=== PATIENT | female | born 1960 | race Caucasian/White ===

== ENCOUNTER 2021-11-28 08:39 | Emergency (ER) | payer OTHER ==
--- NOTE | 2021-11-28 08:47 | ED Physician Documentation ---
PD HPI FEMALE - Stated complaint Stated Complaint: FEMALE - History obtained from History obtained from: Patient - History of Present Illness Timing - onset: How many days ago (several) Timing - duration: Days (several) Timing - details: Gradual onset, Still present Associated symptoms: Other (Started noting tenderness and blisters in the inner labia and periurethral area several days ago. Tried OTC yeast medication without improvement. No prior similar. Today also with right eye crusting and discharge.) Contributing factors: Sexually active (Same partner for 3 years and recently actually just a month ago.) Similar symptoms before: Has not had sx before Recently seen: Not recently seen Review of Systems Constitutional: reports: Myalgias. denies: Fever, Chills Nose: denies: Rhinorrhea / runny nose, Congestion Throat: denies: Sore throat Respiratory: denies: Cough GI: reports: Nausea. denies: Abdominal Pain, Vomiting, Constipation, Diarrhea : reports: Dysuria. denies: Discharge Skin: reports: Rash (vulvovaginal) PD PAST MEDICAL HISTORY - Present Medications Home Medications: Ambulatory Orders Medication Instructions Recorded Confirmed Doxycycline Hyclate 100 mg PO BID 7 Days #14 cap 11/28/21 Lidocaine Jelly 2% [Xylocaine 1 applic TOP QID PRN #30 ml 11/28/21 Jelly 2%] Sulfacetamide Sodium 5 ml RIGHTEYE QID 5 Days #5 ml 11/28/21 Valacyclovir HCl [Valtrex] 1,000 mg PO TID 5 Days #15 tablet 11/28/21 - Allergies Allergies/Adverse Reactions: Allergies Allergy/AdvReac Type Severity Reaction Status Date / Time No Known Drug Allergies Allergy Verified 11/28/21 08:50 PD ED PE NORMAL - Vitals Vital signs reviewed: Yes - General General: Alert and oriented X 3, Well developed/nourished - HEENT HEENT: PERRL, EOMI, Other (not light sensitive. Redness conjunctival. 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 No clustered vesicles. 2-3 to pubis area. Intravaginal with discrete similar sores. No endocervical discharge. No yeast appearance. ) - Rectal Rectal: Deferred - Derm Derm: Normal color, Warm and dry - Neuro Neuro: Alert and oriented X 3, No motor deficit, Normal speech Results - Vitals Vitals: Vital Signs - 24 hr 11/28/21 11/28/21 08:46 10:08 Temperature 37.4 C 37.3 C Heart Rate 100 86 Respiratory 14 12 Rate Blood Pressure 118/100 H 108/79 O2 Saturation 97 95 Oxygen O2 Source Room air - Labs Labs: Laboratory Tests 11/28/21 09:25 C. glabrata (PCR) NEGATIVE C. krusei (PCR) NEGATIVE Xi species DNA NEGATIVE T. vaginalis (PCR) NEGATIVE Bact Vaginosis (PCR) NEGATIVE PD MEDICAL DECISION MAKING - ED course Complexity details: considered differential (consider superficial staph abscesses as first was at pubis area after shaving. But lesions appear discrete sores (not clusters) so could be herpetic (painful as such). Appearance could be similar to ones I have seen in articles on orthoparvovirus. Any of these could transfer to eye, including chlam ), d/w patient Departure - Departure Disposition: 01 Home, Self Care Clinical Impression: Vulvovaginitis Condition: Stable Record reviewed to determine appropriate education?: Yes Prescriptions: Doxycycline Hyclate 100 mg PO BID 7 Days #14 cap Sulfacetamide Sodium 5 ml RIGHTEYE QID 5 Days #5 ml Valacyclovir HCl [Valtrex] 1,000 mg PO TID 5 Days #15 tablet Lidocaine Jelly 2% [Xylocaine Jelly 2%] 1 applic TOP QID PRN #30 ml PRN Reason: Pain Comments: Hopefully this is just a bacterial folliculitis and local infections. However it does have blistering appearance and so there is concern for viral causes such as herpetic and also monkey pox (because it is in the news and has this appearance though fairly unlikely). Other considerations would be chlamydial infection given also some transference likely to the eye. Even a bacterial folliculitis could transfer to the eye by direct inadvertent contact. I would treat this with antibiotic that would cover bacterial folliculitis as well as potential chlamydia for now. I would also start Marla acyclovir antiviral for potential of herpetic outbreak as that has an appearance of that. You can treat the pain with topical lidocaine and also oral ibuprofen or Tylenol or both. I would also use a antibiotic eyedrops 4 times daily for the next several days to treat the eye directly as well. The results from the vaginal PCR test should result 2 of them later today and the other 2 and couple of days. We will call with positive results on your test. You could also review the test results on the patient portal. I transmitted prescriptions to [facility] pharmacy in [place]. Discharge Date/Time: 11/28/21 10:13
[2021-11-28] MEDS ORDERED: valACYclovir 500 MG TABLET PO STA (09:34)
[2021-11-28] MEDS ORDERED: LIDOCAINE JELLY 2% 6 ML JEL.PF.APP TOP STA (09:34)
[2021-11-28] MEDS ORDERED: DOXYCYCLINE 100 MG TABLET PO STA (09:34)
[2021-11-28 10:09] VITALS: BP 108/79
[2021-11-28 13:28] LABS: BACTERIAL VAGINOSIS DNA NEGATIVE (NEGATIVE); CANDIDA GLABRATA DNA NEGATIVE (NEGATIVE); CANDIDA GROUP DNA NEGATIVE (NEGATIVE); CANDIDA KRUSEI DNA NEGATIVE (NEGATIVE); TRICHOMONAS VAGINALIS DNA NEGATIVE (NEGATIVE)
[2021-11-28 20:53] LABS: CHLAMYDIA TRACHOMATIS DNA NEGATIVE (NEGATIVE); NEISSERIA GONORRHOEAE DNA NEGATIVE (NEGATIVE)
== END 2021-11-28 10:13 | disposition home or self-care (01) ==
LOC: ED 08:39
DX: N76.0 Acute vaginitis (principal)
CPT/HCPCS: 81514; 81599; 87491; 87529; 87591; 99283; 99284; A9270; 87661

== ENCOUNTER 2021-12-01 08:00 | Outpatient (CLI) | payer OTHER | END 2021-12-01 23:59 | disposition home or self-care (01) | LOC: LAB.WC 08:00 | PROVIDERS: ATTEND Obstetrics & Gynecology | DX: N90.89 Other specified noninflammatory disorders of vulva and perineum (principal) | CPT/HCPCS: 87070; 87077; 87181; 87205 ==

== ENCOUNTER 2022-02-14 13:53 | Outpatient (CLI) | payer OTHER ==
--- NOTE | 2022-02-16 10:34 | Mammography Report ---
BILATERAL DIGITAL SCREENING MAMMOGRAM 3D/2D: 02/14/2022 CLINICAL: Routine screening. No prior exams were available for comparison. Both breasts are almost entirely fatty (category a/<25% glandular tissue). No significant masses, calcifications, or other findings are seen in either breast. IMPRESSION: NEGATIVE There is no mammographic evidence of malignancy. A 1 year screening mammogram is recommended. Based on the Tyrer Cuzick model (a risk assessment model) the patients lifetime risk is 6.6% and her 10 year risk is 2.8%. According to the ACR, ACS, and NCCN guidelines, an annual breast MRI exam darrick g with mammogram is recommended if the patients lifetime risk is 20% or greater. This exam was interpreted at Station ID: [id number]. NOTE: For mammograms, a report in lay terms will be sent to the patient. Approximately 15% of breast malignancies will not be visualized mammographically. In the management of a palpable breast mass, a negative mammogram must not discourage biopsy of a clinically suspicious lesion. Electronically Signed By: Jacob Alcantar M.D. acr/penrad:02/15/2022 15:32:32 ACR BI-RADS Category 1: Negative 3341F PARENCHYMAL PATTERN: (F) - The breast(s) demonstrate(s) diffuse fatty replacement. BI-RADS CATEGORY: (1) - 1 RECOMMENDATION: (ANNUAL) - Recommend routine annual screening mammography. [id number] 1 year screening LATERALITY: (B)
== END 2022-02-14 13:54 | disposition home or self-care (01) ==
LOC: DI 13:53
PROVIDERS: ATTEND Obstetrics & Gynecology
DX: Z12.31 Encounter for screening mammogram for malignant neoplasm of breast (principal)

== ENCOUNTER 2022-04-12 06:23 | Day surgery (SDC) | payer OTHER ==
[2022-04-12] MEDS ORDERED: LACTATED RINGERS 1,000 ML IV ONE (06:47)
[2022-04-12] MEDS ORDERED: MIDAZOLAM 2 MG/2 ML VIAL ONE (06:55)
[2022-04-12] MEDS ORDERED: fentaNYL 100 MCG/2 ML VIAL ONE (06:55)
[2022-04-12] MEDS ORDERED: PROPOFOL 200 MG/20 ML VIAL IVP ONE (06:55)
[2022-04-12] MEDS ORDERED: LIDOCAINE-PF 2% 10 ML AMP SUBQ ONE (06:56)
--- NOTE | 2022-04-12 06:58 | ANESTHESIA ---
Pre-Anesthesia VS, & Labs - Diagnosis opal 3 - Procedure Leep under anesthesia Vital Signs: Temp Pulse Resp BP Pulse Ox O2 Flow Rate 36.3 C L 76 16 119/84 H 99 04/12/22 06:47 04/12/22 06:47 04/12/22 06:47 04/12/22 06:47 04/12/22 06:47 Height: 5 ft 5 in Weight (kg): 80.9 kg Body Mass Index: 29.7 BMI Classification: Overweight - NPO >8 hours - Is Patient ?: No - Lab Results Lab results reviewed: Yes Home Medications and Allergies Home Medications: Ambulatory Orders Cholecalciferol [Vitamin D3] 50 mcg PO DAILY 03/04/22 Collagen/Biotin/Ascorbic Acid [Collagen 1500 Plus C Capsule] 3 each PO DAILY 03/04/22 Hyaluronate Sodium [Hyaluronic Acid] 750 mg PO DAILY 03/04/22 Lisinopril [Zestril] 10 mg PO DAILY 03/04/22 Multivitamin 1 tab PO DAILY 03/04/22 Nitrofurantoin Macrocrystal [Macrodantin] 50 mg PO PRN PRN 03/04/22 Valacyclovir HCl [Valtrex] 1,000 mg PO DAILY 03/04/22 Vitamin B Complex 1 each PO DAILY 03/04/22 amLODIPine [Norvasc] 5 mg PO DAILY 03/04/22 Cholecalciferol [Vitamin D3] 50 mcg PO DAILY 03/04/22 Collagen/Biotin/Ascorbic Acid [Collagen 1500 Plus C Capsule] 3 each PO DAILY 03/04/22 Hyaluronate Sodium [Hyaluronic Acid] 750 mg PO DAILY 03/04/22 Lisinopril [Zestril] 10 mg PO DAILY 03/04/22 Multivitamin 1 tab PO DAILY 03/04/22 Nitrofurantoin Macrocrystal [Macrodantin] 50 mg PO PRN PRN 03/04/22 Valacyclovir HCl [Valtrex] 1,000 mg PO DAILY 03/04/22 Vitamin B Complex 1 each PO DAILY 03/04/22 amLODIPine [Norvasc] 5 mg PO DAILY 03/04/22 Allergies/Adverse Reactions: Allergies Allergy/AdvReac Type Severity Reaction Status Date / Time codeine AdvReac Nausea, Verified 04/12/22 06:46 groggy Anes History & Medical History - Anesthetic History Anesthesia Complications: reports: No previous complications Family history of Anesthesia Complications: Denies Family history of Malignant Hyperthermia: Denies - Medical History Cardiovascular: reports: Hypertension, Other Pulmonary: reports: None Gastrointestinal: reports: None Urinary: reports: Chronic bladder infection Musculoskeletal: reports: Osteoarthritis Endocrine/Autoimmune: reports: None Skin: reports: None - Surgical History General: reports: Colonoscopy Eyes Ears Nose Throat (EENT): reports: Rhinoplasty Gynecologic: reports: section Exam General: Alert, Oriented x3, Cooperative Dental: WNL Mouth Openin Fingerbreadth Neck Mobility: Normal Mallampati classification: II Thyromental Distance: 4-6 cm Respiratory: Lungs clear, Normal breath sounds, No respiratory distress Cardiovascular: Regular rate Neurological: Normal speech Mental/Cognitive Status: Alert/Oriented X3, Normal for patient Cognitive Status: Within normal limits Plan Anesthesia Type: General Consent for Procedure(s) Verified and Reviewed: Yes Code Status: Attempt Resuscitation ASA classification: 2-Mild systemic disease Is this case an emergency?: No
[2022-04-12] MEDS ORDERED: BUPIVACAINE 0.5% PF 30 ML VIAL ONE (07:07)
[2022-04-12] MEDS ORDERED: POTASSIUM IODIDE/IODINE 14 ML SOLUTION ONE (07:07)
[2022-04-12] MEDS ORDERED: DEXAMETHASONE 4 MG/ML VIAL ONE (07:33)
[2022-04-12] MEDS ORDERED: ONDANSETRON 4 MG/2 ML VIAL ONE (07:33)
[2022-04-12] MEDS ORDERED: HYDROmorphone 0.5 MG/0.5 ML SYRINGE IVP PRN (07:56)
[2022-04-12] MEDS ORDERED: NALOXONE 0.4 MG/ML VIAL IVP PRN (07:56)
[2022-04-12] MEDS ORDERED: fentaNYL 100 MCG/2 ML VIAL IVP PRN (07:56)
[2022-04-12] MEDS ORDERED: ePHEDrine 50 MG/ML VIAL IVP PRN (07:56)
[2022-04-12] MEDS ORDERED: METOCLOPRAMIDE 10 MG/2 ML VIAL IVP PRN (07:56)
[2022-04-12] MEDS ORDERED: MORPHINE 2 MG/ML CARPUJECT IVP PRN (07:56)
[2022-04-12] MEDS ORDERED: ONDANSETRON 4 MG/2 ML VIAL IVP PRN (07:56)
[2022-04-12] MEDS ORDERED: ATROPINE ABBOJECT 1 MG/10 ML SYRINGE IVP PRN (07:56)
[2022-04-12] MEDS ORDERED: POTASSIUM IODIDE/IODINE 14 ML SOLUTION TOP ONE (07:59)
[2022-04-12] MEDS ORDERED: LACTATED RINGERS 1,000 ML IV SCH (08:00)
[2022-04-12] MEDS ORDERED: FERRIC SUBSULFATE 8 ML SOLUTION (FOR OR) TOP ONE (08:10)
[2022-04-12] MEDS ORDERED: KETOROLAC 30 MG/ML VIAL ONE (08:13)
[2022-04-12] MEDS ORDERED: oxyCODONE 5 MG TABLET PO PRN (08:15)
[2022-04-12] MEDS ORDERED: LACTATED RINGERS 600 ML IV ONE (08:19)
--- NOTE | 2022-04-12 08:23 | OPERATIVE REPORT ---
Operative Report - General Procedure Date: 04/12/22 Planned Procedure: LEEP conization with endocervical curettage Pre-Op Diagnosis: ANDREA-3 Procedure Performed: LEEP conization with endocervical curettage Post Op Diagnosis: ANDREA-3 - Procedure Note Primary Surgeon: Adonay Cardenas MD Anesthesia Provider: Ti Mendez CRNA Anesthesia Technique: General LMA Pathology: 1. LEEP conization 2. Cervical 1:00 biopsy 3. Endocervical curettage IV Fluids (mL): 400 Estimated Blood Loss (mL): 20 - Other Other Information/Narrative: Patient was taken to the operating room where general anesthesia was easily obtained. The patient was prepped and draped in the usual sterile fashion. She was placed in dorsolithotomy position and a timeout was performed. Coated sterile speculum was used to achieve visualization of the cervix. Visualization of the cervix showed some friable tissue around the cervical os as well as biopsy scars. The electrocautery machine was turned onto a 40/40 blen and using a large loop, the anterior cervical conization was performed removing the transformation zone, squamocolumnar junction and part of the internal os. Due to the ANDREA-3 at 1:00, an additional approximately 1 cm biopsy was performed at that area. An endocervical curettage was then performed. A combination of ball electrode coagulation and Monsel's was used to achieve hemostasis. Counts were correct. The patient tolerated the procedure well and was taken to the PACU in good condition.
[2022-04-12] MEDS ORDERED: oxyCODONE 5 MG TABLET ONE (08:55)
[2022-04-12 09:00] VITALS: BP 123/88
--- NOTE | 2022-04-12 12:49 | ANESTHESIA POST OP EVALUATION ---
Anesthesia Post Eval - Post Anesthesia Eval Vitals: Last Vital Signs Temp 36.1 C L 04/12/22 08:58 Pulse 73 04/12/22 08:58 Resp 16 04/12/22 08:58 BP 123/88 H 04/12/22 08:58 Pulse Ox 99 04/12/22 08:58 O2 Flow Rate CV Function Including HR & BP: Stable Pain Control: Satisfactory Nausea & Vomiting: Negative Mental Status: Baseline Respiratory Status: Airway Patent Hydration Status: Satisfactory Anesthesia Complications: None
== END 2022-04-12 06:24 | disposition home or self-care (01) ==
LOC: SDS 06:23
PROVIDERS: ATTEND Obstetrics & Gynecology
PROC: 0UBC7ZZ Excision of Cervix, Via Natural or Artificial Opening (ICD-10-PCS; principal; 2022-04-12 07:30)
DX: D06.9 Carcinoma in situ of cervix, unspecified (principal); I10 Essential (primary) hypertension; Z88.5 Allergy status to narcotic agent
CPT/HCPCS: 57522; A9270; J7120

== ENCOUNTER 2022-08-17 09:28 | Outpatient (CLI) | payer OTHER ==
[2022-08-17 10:09] LABS: CHOL/HDL RATIO 4.8 (<4.4); CHOLESTEROL 300 mg/dL; HDL CHOLESTEROL 63 mg/dL; LDL CHOLESTEROL,CALCULATED 215 mg/dL; LDL/HDL RATIO 3.4 (<4.4); TRIGLYCERIDES 110 mg/dL; VLDL CHOLESTEROL 22 mg/dL
[2022-08-17 14:04] LABS: ESTIMATED AVERAGE GLUCOSE 100 mg/dL (70-100); HEMOGLOBIN A1c% 5.1 % (4.27-6.07)
== END 2022-08-17 09:29 | disposition home or self-care (01) ==
LOC: LAB 09:28
PROVIDERS: ATTEND Obstetrics & Gynecology
DX: Z01.419 Encounter for gynecological examination (general) (routine) without abnormal findings (principal); Z13.220 Encounter for screening for lipoid disorders; Z13.1 Encounter for screening for diabetes mellitus
CPT/HCPCS: 36415; 80061; 83036; 83721

== ENCOUNTER 2023-02-20 11:48 | Outpatient (CLI) | payer OTHER ==
[2023-02-20 12:38] LABS: BUN - BLOOD UREA NITROGEN 17 mg/dL (6-20); CALCIUM 9.9 mg/dL (8.5-10.3); CARBON DIOXIDE - CO2 30 mmol/L (21-32); CHLORIDE 106 mmol/L (101-111); CHOLESTEROL 196 mg/dL; CREATININE 0.9 mg/dL (0.6-1.3); GFR - MDRD 63 (>89); GLUCOSE 104 mg/dL (74-104); HDL CHOLESTEROL 66 mg/dL; LDL CHOLESTEROL,CALCULATED 103 mg/dL; LDL/HDL RATIO 1.6 (<4.4); POTASSIUM 4.1 mmol/L (3.5-4.5); SODIUM 140 mmol/L (135-145); TRIGLYCERIDES 137 mg/dL (48-352); VLDL CHOLESTEROL 27 mg/dL
== END 2023-02-20 11:49 | disposition home or self-care (01) ==
LOC: LAB 11:48
PROVIDERS: ATTEND Nurse Practitioner Acute Care
DX: N18.2 Chronic kidney disease, stage 2 (mild) (principal); E78.5 Hyperlipidemia, unspecified
CPT/HCPCS: 36415; 80048; 80061; 83721

== ENCOUNTER 2023-03-15 09:17 | Outpatient (CLI) | payer OTHER | END 2023-03-15 09:18 | disposition home or self-care (01) | LOC: DI 09:17 | PROVIDERS: ATTEND Nurse Practitioner Acute Care | DX: I34.0 Nonrheumatic mitral (valve) insufficiency (principal); R01.1 Cardiac murmur, unspecified; Q24.5 Malformation of coronary vessels | CPT/HCPCS: 93306 ==

== ENCOUNTER 2023-04-11 08:22 | Day surgery (SDC) | payer OTHER ==
--- NOTE | 2023-04-11 08:33 | ANESTHESIA ---
Pre-Anesthesia VS, & Labs - Diagnosis screening - Procedure colonoscopy Height: 5 ft 5 in - NPO Other (prep as directed) - Is Patient ?: No Home Medications and Allergies Home Medications: Ambulatory Orders Rosuvastatin Calcium [Crestor] 5 mg ORAL DAILY 04/10/23 Cholecalciferol [Vitamin D3] 50 mcg PO DAILY 03/04/22 Collagen/Biotin/Ascorbic Acid [Collagen 1500 Plus C Capsule] 3 each PO DAILY 03/04/22 Hyaluronate Sodium [Hyaluronic Acid] 750 mg PO DAILY 03/04/22 Lisinopril [Zestril] 10 mg PO DAILY 03/04/22 Multivitamin 1 tab PO DAILY 03/04/22 Nitrofurantoin Macrocrystal [Macrodantin] 50 mg PO PRN PRN 03/04/22 Valacyclovir HCl [Valtrex] 1,000 mg PO DAILY 03/04/22 Vitamin B Complex 1 each PO DAILY 03/04/22 amLODIPine [Norvasc] 5 mg PO DAILY 03/04/22 Rosuvastatin Calcium [Crestor] 5 mg ORAL DAILY 04/10/23 Allergies/Adverse Reactions: Allergies Allergy/AdvReac Type Severity Reaction Status Date / Time codeine AdvReac Nausea, Verified 04/12/22 06:46 groggy Anes History & Medical History - Anesthetic History Anesthesia Complications: reports: No previous complications - Medical History Cardiovascular: reports: Hypertension, Other Pulmonary: reports: None Gastrointestinal: reports: None Urinary: reports: Chronic bladder infection Musculoskeletal: reports: Osteoarthritis Endocrine/Autoimmune: reports: None Skin: reports: None Smoking Status: Never smoker Psychosocial: reports: Alcohol (occasionally) - Surgical History General: reports: Colonoscopy Eyes Ears Nose Throat (EENT): reports: Rhinoplasty Gynecologic: reports: section Exam General: Alert Plan Anesthesia Type: Total IV Consent for Procedure(s) Verified and Reviewed: Yes Code Status: Attempt Resuscitation ASA classification: 2-Mild systemic disease Is this case an emergency?: No
[2023-04-11] MEDS ORDERED: LACTATED RINGERS 1,000 ML IV ONE ×2 (08:46→09:40)
[2023-04-11] MEDS ORDERED: PROPOFOL 500 MG/50 ML 500 MG/50 ML VIAL ONE (09:03)
[2023-04-11 09:55] VITALS: O2SAT 100
[2023-04-11 10:14] VITALS: BP 99/77
--- NOTE | 2023-04-11 12:23 | ANESTHESIA POST OP EVALUATION ---
Anesthesia Post Eval - Post Anesthesia Eval Vitals: Last Vital Signs Temp 36.2 C L 04/11/23 10:07 Pulse 66 04/11/23 10:07 Resp 18 04/11/23 10:07 BP 99/77 04/11/23 10:07 Pulse Ox 100 04/11/23 10:07 O2 Flow Rate CV Function Including HR & BP: Stable Pain Control: Satisfactory Nausea & Vomiting: Negative Mental Status: Baseline Respiratory Status: Airway Patent Hydration Status: Satisfactory Anesthesia Complications: None
== END 2023-04-11 08:23 | disposition home or self-care (01) ==
LOC: SDS 08:22
PROVIDERS: ATTEND Surgery
DX: Z12.11 Encounter for screening for malignant neoplasm of colon (principal); K57.30 Diverticulosis of large intestine without perforation or abscess without bleeding
CPT/HCPCS: 45378; J7120

== ENCOUNTER 2023-08-10 08:12 | Outpatient (CLI) | payer OTHER ==
[2023-08-10 08:30] LABS: BASOPHILS % (AUTO) 0.7 %; EOSINOPHILS # (AUTO) 0.1 10^3/uL (0.0-0.7); EOSINOPHILS % (AUTO) 2.1 %; HCT - HEMATOCRIT 42.4 % (37.0-47.0); LYMPHOCYTES # (AUTO) 1.6 10^3/uL (1.5-3.5); LYMPHOCYTES % (AUTO) 36.4 %; MEAN CORPUSCULAR HEMOGLOBIN 32.2 pg (27.0-31.0); MEAN CORPUSCULAR VOLUME 97.5 fL (81.0-99.0); MEAN PLATELET VOLUME 8.6 fL (7.9-10.8); MONOCYTES # (AUTO) 0.3 10^3/uL (0.0-1.0); MONOCYTES % (AUTO) 7.6 %; NEUTROPHILS # (AUTO) 2.3 10^3/uL (1.5-6.6); PLT - PLATELET COUNT 268 10^3/uL (130-450); RED BLOOD COUNT 4.35 10^6/uL (4.20-5.40); WHITE BLOOD COUNT 4.3 x10^3/uL (4.8-10.8)
[2023-08-10 08:44] LABS: ALBUMIN 4.5 g/dL (3.2-5.5); ALBUMIN/GLOBULIN RATIO 1.7 (1.0-2.2); ALKALINE PHOSPHATASE 38 IU/L (42-121); ALT ALANINE AMINOTRANSFERASE 19 IU/L (10-60); AST ASPARTATE AMINOTRANSFERASE 19 IU/L (10-42); BILIRUBIN,TOTAL 0.9 mg/dL (0.2-1.0); BUN - BLOOD UREA NITROGEN 17 mg/dL (6-20); CARBON DIOXIDE - CO2 29 mmol/L (21-32); CHLORIDE 106 mmol/L (101-111); CHOL/HDL RATIO 2.7 (<4.4); CHOLESTEROL 205 mg/dL; CREATININE 0.9 mg/dL (0.6-1.3); GFR - MDRD 63 (>89); GLUCOSE 88 mg/dL (74-104); HDL CHOLESTEROL 76 mg/dL; LDL CHOLESTEROL,CALCULATED 111 mg/dL; LDL/HDL RATIO 1.5 (<4.4); POTASSIUM 4.6 mmol/L (3.5-4.5); SODIUM 141 mmol/L (135-145); TOTAL PROTEIN 7.1 g/dL (6.4-8.9); TRIGLYCERIDES 89 mg/dL (48-352); VLDL CHOLESTEROL 18 mg/dL
[2023-08-10 09:00] LABS: THYROID STIMULATING HORMONE 1.48 uIU/mL (0.34-5.60)
== END 2023-08-10 08:13 | disposition home or self-care (01) ==
LOC: LAB 08:12
PROVIDERS: ATTEND Nurse Practitioner Acute Care
DX: Z13.228 Encounter for screening for other metabolic disorders (principal); Z13.220 Encounter for screening for lipoid disorders; Z13.29 Encounter for screening for other suspected endocrine disorder; Z13.0 Encounter for screening for diseases of the blood and blood-forming organs and certain disorders involving the immune mechanism
CPT/HCPCS: 36415; 80053; 80061; 83721; 84443; 85025